=== PATIENT | male | born 1955 | race Caucasian/White ===

== ENCOUNTER 2018-07-15 08:11 | Outpatient (CLI) | payer OTHER, SELFPAY ==
[2018-07-15] VITALS (8 sets, daily range): BP systolic 106–149; BP diastolic 53–80; PULSE 55–63; RESP 16–18; TEMP 36.3; O2SAT 97–100
--- NOTE | 2018-07-15 08:12 | DI.RAD.S_ITS ---
PROCEDURE: PAIN L/S TRANSFORAMINAL INJECT INDICATIONS: SCOLIOSIS FINDINGS: Fluoroscopic spot filming was performed to verify placement of spinal needles at the L1-L2 left-sided foramen region level(s), as labeled on the films. Appropriate location(s) of the needle tip(s) was confirmed by injection of iodinated contrast. IMPRESSION: Successful left L1-L2 foramen region needle tip localization for epidural steroid injection. Dictated by: Felix Hoyos M.D. on 07/15/2018 at 13:01 Approved by: Felix Hoyos M.D. on 07/15/2018 at 13:02
[2018-07-15] MEDS: MIDAZOLAM 5 MG/5 ML VIAL IV (09:12)
[2018-07-15] MEDS: IOPAMIDOL 15 ML VIAL 3 ML INJ (09:18)
[2018-07-15] MEDS: DEXAMETHASONE 10 MG/ML VIAL 20 MG INJ (09:18)
[2018-07-15] MEDS: methylPREDNISolone acetate 80 MG/ML VIAL INJ (09:18)
[2018-07-15] MEDS: BUPIVACAINE 0.25% (PF) VIAL 2 ML INJ (09:18)
--- NOTE | 2018-07-15 09:27 | P.PCN_ITS ---
Procedures Date/Time Date of procedure: 07/15/18 Time of procedure: 09:26 General Procedure description: PROVIDER: Clint Ferro DO Operative Note PREOP DIAGNOSIS 1. FORAMINAL STENOSIS WITH LE SYMPTOMS, POST OP DIAGNOSIS 1. FORAMINAL STENOSIS WITH LE SYMPTOMS, PROCEDURES 1. FLUOROSCOPICALLY GUIDED CONTRAST CONTROLLED TRANSFORAMINAL EPIDURAL STEROID INJECTION - LEFT L1/2 TFESI SURGEON: Clint Ferro, DO INDICATIONS Andry is referred by Dr. Salvador for treatment of Foraminal Stenosis with left LE Symptoms FINDINGS Foraminal Nerve Root Compression secondary to disc disease and facet hypertrophy DESCRIPTION OF PROCEDURE Following denial of allergy and review of potential side effects and complications, including, but not necessarily limited to, infection, allergic reaction, local tissue breakdown, stroke, temporary or permanent nerve injury, paralysis, and possible , the patient indicated that the patient understood and agreed to proceed. An informed consent document was signed by the patient, witnessed by a nurse, and placed in the patient's chart. Additionally, other treatment options including medications, modalities, and physical therapy were reviewed with the patient. After review of previous anaesthesic history and IV conscious sedation the patient was deemed safe to proceed with todays procedure with IV conscious sedation as ASA class II designation. Safety time-out was performed to confirm patient ID, procedure to be performed and site of procedure. IV sedation was accomplished with a combination of 3mg was administered by the RN after DO order , titrated to patient comfort during the course of the procedure while the patient remained responsive to all verbal commands In the prone position following sterile prep and drape of the lumbar region, the left L1/2 posterior neuroforamen was identified fluoroscopically. The skin was anesthetized via a 25-gauge 1.5-inch needle with 1% lidocaine solution. At this point, a 25-gauge 3.5-inch spinal needle was atraumatically introduced and advanced under fluoroscopic guidance through the posterior left L1/2 neuroforamen to approximately the anterior aspect of the canal. Depth was confirmed on lateral view. Following negative aspiration, injection of approximately 1.5 cc of Isovue 200 under live fluoroscopy in the AP view confirmed excellent flow along the nerve root, into the epidural space without vascular or intrathecal uptake observed Radiological data, including multiple fluoroscopic views of the lumbosacral spine, reveal a spinal needle at the left L1/2 posterior neuroforamen. Subsequent views show flow of contrast material flowing superiorly and inferiorly along the nerve root confirming epidural flow. Subsequently, a test dose of 1.5 cc of 1% lidocaine solution was administered and patient was observed for two minutes for signs or symptoms of complications , including abdominal pain, shortness of breath, bilateral upper or lower extremity weakness, nausea and vomiting, prior to steroid injection. At this point, a total of 3 cc or 20 mg of dexamethasone and 80mg Depo medrol was injected without incident. The patient tolerated the procedure well without signs or symptoms of complications prior to transfer to the recovery area continued monitoring without incident. The patient was then transferred to the recovery area where they were observed for an appropriate time after the injection. The patient reported a VAS score of 7 prior to the procedure and a post-procedure VAS of 0. Total Fluoroscopy Time: 24.2 seconds Total Conscious Sedation Time: 24min POST OP INSTRUCTIONS The patient was provided a Pain Log to continue to record their response to the target-specific procedure prior to follow-up visit with their referring physician. Additionally, specific post-injection care instructions and a contact number to our office were provided if concerns arise regarding possible complications associated with the procedure are suspected. Clint Ferro, Complications: none
== END 2018-07-15 09:55 ==
LOC: RAD 08:12
PROVIDERS: PCP Internal Medicine; Visit Provider Physical Medicine & Rehabilitation
DX: M48.061 Spinal stenosis, lumbar region without neurogenic claudication (principal); M54.16 Radiculopathy, lumbar region; M41.56 Other secondary scoliosis, lumbar region; Z98.1 Arthrodesis status
CPT/HCPCS: 64483; 99152; J1040; J1100; J2250

== ENCOUNTER 2018-08-19 11:08 | Outpatient (CLI) | payer OTHER, SELFPAY ==
[2018-08-19] VITALS (9 sets, daily range): BP systolic 115–146; BP diastolic 65–80; PULSE 64–67; RESP 14–18; TEMP 36.3; O2SAT 96–100
--- NOTE | 2018-08-19 11:10 | DI.RAD.S_ITS ---
PROCEDURE: PAIN SI JOINT INJECTION CRYSTAL COMPARISON: None. INDICATIONS: SACROCOCCYGEAL DISORDER FINDINGS: Fluoroscopic spot filming was performed to verify placement of spinal needles at the left and right sacroiliac joints, as labeled on the films. Appropriate location(s) of the needle tip(s) was confirmed by injection of iodinated contrast. Dictated by: Lam Fitzpatrick M.D. on 08/20/2018 at 13:58 Approved by: Lam Fitzpatrick M.D. on 08/20/2018 at 13:59
[2018-08-19] MEDS: MIDAZOLAM 5 MG/5 ML VIAL IV (11:55)
[2018-08-19] MEDS: BUPIVACAINE 0.5% (PF) VIAL 2 ML INJ (12:04)
[2018-08-19] MEDS: IOPAMIDOL 15 ML VIAL 3 ML INJ (12:04)
[2018-08-19] MEDS: BETAMETHASONE 30 MG/5 ML MDV 12 MG INJ (12:05)
--- NOTE | 2018-08-19 12:10 | PC.NURSE ---
assisting pt off proc table and transporting to post proc area in stable condition
--- NOTE | 2018-08-19 12:23 | PC.NURSE ---
Received pt from Tamera James post procedure, pt is alert and awake. able to move from w/c to chair. Resumed monitoring.
--- NOTE | 2018-08-19 12:25 | P.PCN_ITS ---
Procedures Date/Time Date of procedure: 08/19/18 Time of procedure: 12:16 General Procedure description: PREOP Dx: Sacroiliac joint pain/DJD POST OP DX: Sacroiliac Joint Pain/DJD Procedures: Fluoroscopic guided contrast controlled bilateral sacroiliac joint injection Physician: Clint Ferro D.O. Indications: Andry is referred by Dr. Salvador for treatment of bilateral sacroiliac joint pain s/p lumbar fusion Description of procedure Fluoroscopic guided, contrast controlled right sacroiliac joint injection Following denial of allergies and review of potential side effects and complications, including, but not necessarily limited to, infection, allergic reaction, local tissue breakdown, temporary as well as permanent nerve injury, paralysis, stroke and possible , the patient indicated that they understood and agreed to proceed. An informed consent was signed by the patient , witnessed by a nurse, and placed in the patient's chart. Additionally, other treatment options including modalities, medications, and physical therapy were reviewed with the patient. After review of previous anaesthesic history and IV conscious sedation the patient was deemed safe to proceed with todays procedure with IV conscious sedation as ASA class II designation. Safety time-out was performed to confirm patient ID, procedure to be performed and site of procedure. IV sedation was accomplished with a combination of 4mg was administered by the RN after DO order , titrated to patient comfort during the course of the procedure while the patient remained responsive to all verbal commands In the prone position following sterile prep and drape of the pelvic region, the hyper lucency on in the inferior aspect of the sacroiliac joint was identified fluoroscopically the skin was anesthetized be a 25 gauge 1 eventual with approximately 2 cc of 1% lidocaine solution. At this point, a 22 gauge 3 in spinal needle was atraumatically introduced and advanced under fluoroscopic guidance into the inferior aspect of the right sacroiliac joint. Following negative aspiration, approximately 0.3 cc of Isovue-300 was injected confirming intra-articular placement without vascular uptake. Radiographic data, including multiple fluoroscopic views of the pelvis, reveals a spinal needle in the sacroiliac joint hyper lucent zone. Subsequent view show flow contrast tear superiorly and inferiorly within the joint capsule without vascular intrathecal uptake. At this point a total of 1 cc or 0 8 of 0.5% Marcaine was combined with 1 cc of 6 mg of betamethasone was injected without incident. Attention was then refocused to the left SI joint where the procedure was replicated. The procedure tolerated the procedure well without signs or symptoms of complications prior to transfer to the recovery area continued monitoring without incident. The patient was then transferred to the recovery area with a bur observed for an appropriate time after the injection. The patient reverted a vas score of 9 prior to the procedure and postprocedure vas of 2. Total fluoroscopy time: 22.7 sec Total conscious sedation time: 24 min Postop instructions The patient was provided with a pain like to continue to record the patient's response to the target specific procedure prior to the patient's follow-up visit with the referring physician. Additionally, specific post injection care instructions and a contact number to our office were provided if concerns arise regarding the possible complications associated with procedure are suspected. Clint Ferro D.O. Complications: none
== END 2018-08-19 12:40 | disposition home or self-care (01) ==
PROVIDERS: PCP Internal Medicine; Visit Provider Physical Medicine & Rehabilitation
DX: M53.3 Sacrococcygeal disorders, not elsewhere classified (principal); M47.818 Spondylosis without myelopathy or radiculopathy, sacral and sacrococcygeal region; M41.56 Other secondary scoliosis, lumbar region; Z98.1 Arthrodesis status
CPT/HCPCS: 27096; 99152; J0702; J2250

== ENCOUNTER 2019-01-28 13:11 | Outpatient (CLI) | payer OTHER, SELFPAY ==
--- NOTE | 2019-01-28 13:15 | DI.RAD.S_ITS ---
PROCEDURE: PAIN SI JOINT INJECTION INDICATIONS: SACROCOCCYGEAL DISORDER FINDINGS: Fluoroscopic spot filming was performed to verify placement of spinal needle at the left lower third sacroiliac joint level(s), as labeled on the films. Appropriate location(s) of the needle tip(s) was confirmed by injection of iodinated contrast. IMPRESSION: Sacroiliac joint needle tip localization on the left for presumed steroid injection. Dictated by: Felix Hoyos M.D. on 01/28/2019 at 15:06 Approved by: Felix Hoyos M.D. on 01/28/2019 at 15:08
[2019-01-28 13:20] VITALS: BP 108/64; PULSE 65; RESP 16; TEMP 36.2; O2SAT 95
--- NOTE | 2019-01-28 13:47 | P.PCN_ITS ---
Procedures Date/Time Date of procedure: 01/28/19 Time of procedure: 13:45 General Procedure description: PREOP Dx: Sacroiliac joint pain/DJD POST OP DX: Sacroiliac Joint Pain/DJD Procedures: Fluoroscopic guided contrast controlled left sacroiliac joint injection Physician: Clint Ferro D.O. Indications: Andry is referred by Dr. Salvador for treatment of left sacroiliac joint DJD Description of procedure Fluoroscopic guided, contrast controlled left sacroiliac joint injection Following denial of allergies and review of potential side effects and complications, including, but not necessarily limited to, infection, allergic r eaction, local tissue breakdown, temporary as well as permanent nerve injury, paralysis, stroke and possible , the patient indicated that they understood and agreed to proceed. An informed consent was signed by the patient, witnessed by a nurse, and placed in the patient's chart. Additionally, other treatment options including modalities, medications, and physical therapy were reviewed with the patient. After review of previous anaesthesic history and IV conscious sedation the patient was deemed safe to proceed with todays procedure with IV conscious sedation as ASA class II designation. Safety time-out was performed to confirm patient ID, procedure to be performed and site of procedure. IV sedation was accomplished with oral pre-medication and thus IV were not administered by the RN after DO order, titrated to patient comfort during the course of the procedure while the patient remained responsive to all verbal commands. In the prone position following sterile prep and drape of the pelvic region, the hyper lucency on in the inferior aspect of the left sacroiliac joint was identified fluoroscopically the skin was anesthetized be a 25 gauge 1 eventual with approximately 2 cc of 1% lidocaine solution. At this point, a 22 gauge 3 in spinal needle was atraumatically introduced and advanced under fluoroscopic guidance into the inferior aspect of the left sacroiliac joint. Following negative aspiration, approximately 0.3 cc of Isovue-300 was injected confirming intra-articular placement without vascular uptake. Radiographic data, including multiple fluoroscopic views of the pelvis, reveals a spinal needle in the left sacroiliac joint hyper lucent zone. Subsequent view show flow contrast tear superiorly and inferiorly within the joint capsule without vascular intrathecal uptake. At this point a total of 1cc or 0 8 of 0.5% Marcaine was combined with 1cc of 6mg of betamethasone was injected without incident. The patient tolerated the procedure well without signs or symptoms of complications prior to transfer to the recovery area for further monitoring. The patient was then transferred to the recovery area with a bur observed for an appropriate time after the injection. The patient reverted a vas score of 7 prior to the procedure and postprocedure vas of 1. Total fluoroscopy time: 22.7 sec Total conscious sedation time: 24 min Postop instructions The patient was provided with a pain like to continue to record the patient's response to the target specific procedure prior to the patient's follow-up visit with the referring physician. Additionally, specific post injection care instructions and a contact number to our office were provided if concerns arise regarding the possible complications associated with procedure are suspected. Clint Ferro D.O. Complications: none
[2019-01-28 13:59] VITALS: BP 130/70; PULSE 57; RESP 18; O2SAT 98
[2019-01-28 14:04] VITALS: BP 110/90; PULSE 56; RESP 16; O2SAT 97
[2019-01-28] MEDS: BUPIVACAINE 0.5% (PF) VIAL 2 ML INJ (14:07)
[2019-01-28] MEDS: IOPAMIDOL 15 ML VIAL 3 ML INJ (14:07)
[2019-01-28] MEDS: BETAMETHASONE 30 MG/5 ML MDV 12 MG INJ (14:07)
[2019-01-28 14:09] VITALS: BP 130/68; PULSE 56; RESP 16; O2SAT 97
[2019-01-28 14:19] VITALS: BP 122/64; PULSE 58; RESP 16; O2SAT 97
--- NOTE | 2019-01-28 14:21 | PC.NURSE ---
NO SEDATION MEDS GIVEN DURING PROCEDURE. ACCEPTED CARE OF PT IN POST PROC AREA IN STABLE CONDITION
== END 2019-01-28 14:36 | disposition home or self-care (01) ==
PROVIDERS: PCP Internal Medicine; Visit Provider Physical Medicine & Rehabilitation
DX: M53.3 Sacrococcygeal disorders, not elsewhere classified (principal); M47.898 Other spondylosis, sacral and sacrococcygeal region
CPT/HCPCS: 27096; 99152; J0702; J2250; J3010

== ENCOUNTER 2019-04-29 11:26 | Outpatient (CLI) | payer OTHER, SELFPAY ==
[2019-04-29] VITALS (7 sets, daily range): BP systolic 105–140; BP diastolic 55–80; PULSE 57–61; RESP 16; TEMP 36.6; O2SAT 97–100
--- NOTE | 2019-04-29 11:28 | DI.RAD.S_ITS ---
PROCEDURE: PAIN L/S FACET INJ/BLK 1ST CRYSTAL COMPARISON: None. INDICATIONS: SPONDYLOSIS FINDINGS: Needle tip localization is documented at the L1-L2 facet joint regions bilaterally. IMPRESSION: Successful needle tip localization at the bilateral L1-L2 facet joints for presumed steroid injection. Dictated by: Felix Hoyos M.D. on 04/29/2019 at 14:06 Approved by: Felix Hoyos M.D. on 04/29/2019 at 14:07
--- NOTE | 2019-04-29 12:42 | DI.RAD.S_ITS ---
PROCEDURE: PAIN SI JOINT INJECTION CRYSTAL COMPARISON: [facility], XA, PAIN SI JOINT INJECTION CRYSTAL, 08/19/2018, 13:02. INDICATIONS: SACROCOCCYGEAL DISORDER FINDINGS: A total of 6 digital acquisition images show the sequence of injection of steroid into the lower third sacroiliac joint space bilaterally. IMPRESSION: Successful needle tip localization for bilateral sacroiliac joint steroid injection. Dictated by: Felix Hoyos M.D. on 04/29/2019 at 13:51 Approved by: Felix Hoyos M.D. on 04/29/2019 at 13:52
--- NOTE | 2019-04-29 12:43 | P.PCN_ITS ---
Procedures Date/Time Date of procedure: 04/29/19 Time of procedure: 12:39 General Procedure description: PREOP DIAGNOSIS 1. FACET ARTHROPATHY, 2. AXIAL LBP, 3. MULTILEVEL DDD, POST OP DIAGNOSIS 1. FACET ARTHROPATHY, 2. AXIAL LBP, 3. MULTILEVEL DDD, PROCEDURES 1. FLUORSCOPICALLY GUIDED CONTRAST CONTROLLED FACET JOINT INJECTIONS BILATERAL L1/2 SURGEON: Clint Ferro, DO INDICATION Andry is referred by Dr. Salvador is referred for treatment of Axial LBP FINDINGS Multilevel Facet Arthropathy with Clinically significant axial LBP DESCRIPTION OF PROCEDURE Fluoroscopically guided, contrast-controlled bilateral L1/2 facet joint injections. Following review of allergy and review of potential side effects and complications, including, but not necessarily limited to, infection, allergic reaction, local tissue breakdown, stroke, temporary or permanent nerve injury, paralysis, and possible , the patient indicated that the patient understood and agreed to proceed. An informed consent document was signed by the patient, witnessed by a nurse, and placed in the patient's chart. Additionally, other treatment options including medications, modalities, and physical therapy were reviewed with the patient. After review of previous anaesthesic history and IV conscious sedation the patient was deemed safe to proceed with todays procedure with IV conscious sedation as ASA class II designation. Safety time-out was performed to confirm patient ID, procedure to be performed and site of procedure. IV sedation was accomplished with a combination of 3mg of Versed and 50mcg of Fentanyl administered by the RN after DO order, titrated to patient comfort during the course of the procedure while the patient remained responsive to all verbal commands In the prone position, following sterile prep and drape of the lumbar region, the posterior aspect of the L1/2 facet joints were identified fluoroscopically. The skin was anesthetized via a 25-gauge 1.5-inch needle with 1% lidocaine solution into the corresponding facet joints. At this point, a 22-gauge 3.5- inch spinal needle was atraumatically introduced and advanced under fluoroscopic guidance into the corresponding facet joints. Following negative aspiration, injections of approximately 0.2-cc of Isovue 200 confirmed interarticular placement without vascular uptake. The identical procedure was then performed at the L1/2 facet joints on the left. Radiological data, including multiple fluoroscopic views of the lumbosacral spine, reveal a spinal needle at the L1/2 facet joints bilaterally. Subsequent views show flow of contrast material both superiorly and inferiorly within the joint space without vascular or intrathecal uptake. At this point, a total of 0.5 cc including a mixture of 0.25cc Marcaine and 0.25cc betamethasone was injected without complication into each of the corresponding facet joints. The patient tolerated the procedure well without signs or symptoms of complications prior to transfer to the recovery area continued monitoring without incident. The patient was then transferred to the recovery area where they were observed for an appropriate period of time after the injection. The patient reported a VAS score of 7 prior to the procedure and a post-procedure VAS of 0. Total Fluoroscopy Time: 20.3 seconds Total Conscious Sedation Time: 24min POST OP INSTRUCTIONS The patient was provided a Pain Log to continue to record their response to the target-specific procedure prior to follow-up visit with their referring physician. Additionally, specific post-injection care instructions and a contact number to our office were provided if concerns arise regarding possible complications associated with the procedure are suspected. Clint Ferro, Complications: none
[2019-04-29] MEDS: MIDAZOLAM 5 MG/5 ML VIAL IV (12:45)
[2019-04-29] MEDS: fentaNYL 100 MCG/2 ML INJ 50 MCG IV (12:45)
--- NOTE | 2019-04-29 12:45 | P.PCN_ITS ---
Procedures Date/Time Date of procedure: 04/29/19 Time of procedure: 12:43 General Procedure description: PREOP Dx: Sacroiliac joint pain/DJD POST OP DX: Sacroiliac Joint Pain/DJD Procedures: Fluoroscopic guided contrast controlled bilateral sacroiliac joint injection Physician: Clint Ferro D.O. Indications: Andry is referred by Dr. Salvador for treatment of bilateral sacroiliac joint DJD Description of procedure Fluoroscopic guided, contrast controlled bilateral sacroiliac joint injection Following review of allergies and review of potential side effects and complications, including, but not necessarily limited to, infection, allergic reaction, local tissue breakdown, temporary as well as permanent nerve injury, paralysis, stroke and possible , the patient indicated that they understood and agreed to proceed. An informed consent was signed by the patient, witnessed by a nurse, and placed in the patient's chart. Additionally, other treatment options including modalities, medications, and physical therapy were reviewed with the patient. After review of previous anaesthesic history and IV conscious sedation the patient was deemed safe to proceed with todays procedure with IV conscious sedation as ASA class II designation. Safety time-out was performed to confirm patient ID, procedure to be performed and site of procedure. IV sedation was accomplished with a combination of 3mg Versed and 50mcg of Fentanyl were administered by the RN after DO order, titrated to patient comfort during the course of the procedure while the patient remained responsive to all verbal commands In the prone position following sterile prep and drape of the pelvic region, the hyper lucency on in the inferior aspect of the sacroiliac joint was identified fluoroscopically the skin was anesthetized be a 25 gauge 1 eventual with approximately 2 cc of 1% lidocaine solution. At this point, a 22 gauge 3 in spinal needle was atraumatically introduced and advanced under fluoroscopic guidance into the inferior aspect of the right sacroiliac joint. Following negative aspiration, approximately 0.3 cc of Isovue-300 was injected confirming intra-articular placement without vascular uptake. Radiographic data, including multiple fluoroscopic views of the pelvis, reveals a spinal needle in the sacroiliac joint hyper lucent zone. Subsequent view show flow contrast tear superiorly and inferiorly within the joint capsule without vascular intrathecal uptake. At this point a total of 1cc of 0.5% Marcaine was combined with 1 cc of 6mg of betamethasone was injected without incident. Attention was then refocused the left sacroiliac joint where the procedure was replicated. The procedure tolerated the procedure well without signs or symptoms of complications prior to transfer to the recovery area continued monitoring wi thout incident. The patient was then transferred to the recovery area with a bur observed for an appropriate time after the injection. The patient reverted a vas score of 7 prior to the procedure and postprocedure vas of 1. Total fluoroscopy time: 22.7 sec Total conscious sedation time: 24 min Postop instructions The patient was provided with a pain like to continue to record the patient's response to the target specific procedure prior to the patient's follow-up visit with the referring physician. Additionally, specific post injection care instructions and a contact number to our office were provided if concerns arise regarding the possible complications associated with procedure are suspected. Clint Ferro D.O.
[2019-04-29] MEDS: IOPAMIDOL 15 ML VIAL 3 ML INJ (12:53)
[2019-04-29] MEDS: BETAMETHASONE 30 MG/5 ML MDV 12 MG INJ (12:54)
[2019-04-29] MEDS: BUPIVACAINE 0.5% (PF) VIAL 5 ML INJ (12:54)
[2019-04-29] MEDS: LIDOCAINE 1% 20 ML 10 ML INJ (12:54)
--- NOTE | 2019-04-29 13:08 | PC.NURSE ---
Pt tolerated procedure well. Pt able to get off table with standby assist. Transferred pt via wheelchair to pre procedure room for continued monitoring with Tamera HEDRICK.
== END 2019-04-29 13:58 | disposition home or self-care (01) ==
LOC: RAD 11:27
PROVIDERS: PCP Internal Medicine; Visit Provider Physical Medicine & Rehabilitation
DX: M53.3 Sacrococcygeal disorders, not elsewhere classified (principal); M47.9 Spondylosis, unspecified; M41.56 Other secondary scoliosis, lumbar region; Z98.1 Arthrodesis status
CPT/HCPCS: 27096; 64493; 99152; J0702; J2250; J3010

== ENCOUNTER → 2020-02-12 11:40 | Outpatient (CLI) | payer MEDICARE, OTHER, SELFPAY ==
[2020-02-13 07:43] LABS: COVID19 Sendout Not Detected (Not Detect)
== END ==
PROVIDERS: PCP Internal Medicine; Visit Provider Physician Assistant
DX: Z01.818 Encounter for other preprocedural examination (principal)
CPT/HCPCS: 87635

== ENCOUNTER 2020-02-15 09:15 | Outpatient (CLI) | payer MEDICARE, OTHER, SELFPAY ==
[2020-02-15] VITALS (11 sets, daily range): BP systolic 114–157; BP diastolic 52–95; PULSE 57–62; RESP 15–16; TEMP 36.6; O2SAT 96–100
--- NOTE | 2020-02-15 | DI.RAD.S_ITS ---
PROCEDURE: PAIN SI JOINT INJECTION CRYSTAL COMPARISON: Located Within [facility], XA, PAIN SI JOINT INJECTION CRYSTAL, 04/29/2019, 13:04. INDICATIONS: SACROCOCCYGEAL DISORDER FINDINGS: Fluoroscopic spot filming was performed to verify placement of spinal needles at the left and right sacroiliac joints, as labeled on the films. Appropriate location(s) of the needle tip(s) was confirmed by injection of iodinated contrast. Dictated by: Lam Fitzpatrick M.D. on 02/15/2020 at 11:07 Approved by: Lam Fitzpatrick M.D. on 02/15/2020 at 11:12
--- NOTE | 2020-02-15 09:18 | DI.RAD.S_ITS ---
PROCEDURE: PAIN L/S FACET INJ/BLK 1ST CRYSTAL COMPARISON: [facility], , PAIN L/S FACET INJ/BLK 1ST CRYSTAL, 04/29/2019, 12:56. INDICATIONS: SPONDYLOSIS FINDINGS: Fluoroscopic spot filming was performed to verify placement of spinal needles at the L1-L2 level(s), as labeled on the films. Appropriate location(s) of the needle tip(s) was confirmed by injection of iodinated contrast. Dictated by: Lam Fitzpatrick M.D. on 02/15/2020 at 11:07 Approved by: Lam Fitzpatrick M.D. on 02/15/2020 at 11:07
[2020-02-15] MEDS: MIDAZOLAM 5 MG/5 ML VIAL IV (10:05)
[2020-02-15] MEDS: fentaNYL 100 MCG/2 ML INJ 50 MCG IV (10:05)
[2020-02-15] MEDS: BUPIVACAINE 0.5% (PF) VIAL 5 ML INJ (10:11)
[2020-02-15] MEDS: IOPAMIDOL 15 ML VIAL 3 ML INJ (10:11)
[2020-02-15] MEDS: LIDOCAINE 1% 20 ML 10 ML INJ (10:12)
[2020-02-15] MEDS: BETAMETHASONE 30 MG/5 ML MDV 12 MG INJ (10:18)
--- NOTE | 2020-02-15 10:26 | PC.NURSE ---
ASSISTING PT OFF TABLE AND TRANSPORTING TO POST PROC AREA IN STABLE CONDITION. PASSING RN CARE OF PT OFF TO RYLEY ARCHIBALD.
--- NOTE | 2020-02-15 10:32 | P.PCN_ITS ---
Procedures Date/Time Date of procedure: 02/15/20 Time of procedure: 10:33 General Procedure description: PREOP Dx: Sacroiliac joint pain/DJD POST OP DX: Sacroiliac Joint Pain/DJD Procedures: Fluoroscopic guided contrast controlled bilateral sacroiliac joint injection Physician: Clint Ferro D.O. Indications: Andry is referred by Dr. Salvador for treatment of bilateral sacroiliac joint DJD Description of procedure Fluoroscopic guided, contrast controlled bilateral sacroiliac joint injection Following review of allergies and review of potential side effects and complications, including, but not necessarily limited to, infection, allergic reaction, local tissue breakdown, temporary as well as permanent nerve injury, paralysis, stroke and possible , the patient indicated that they understood and agreed to proceed. An informed consent was signed by the patient, witnessed by a nurse, and placed in the patient's chart. Additionally, other treatment options including modalities, medications, and physical therapy were reviewed with the patient. After review of previous anaesthesic history and IV conscious sedation the patient was deemed safe to proceed with todays procedure with IV conscious sedation as ASA class II designation. Safety time-out was performed to confirm patient ID, procedure to be performed and site of procedure. IV sedation was accomplished with a combination of 4mg Versed and 50mcg of Fentanyl were administered by the RN after DO order, titrated to patient comfort during the course of the procedure while the patient remained responsive to all verbal commands In the prone position following sterile prep and drape of the pelvic region, the hyper lucency on in the inferior aspect of the sacroiliac joint was identified fluoroscopically the skin was anesthetized be a 25 gauge 1 eventual with approximately 2 cc of 1% lidocaine solution. At this point, a 22 gauge 3 in spinal needle was atraumatically introduced and advanced under fluoroscopic guidance into the inferior aspect of the right sacroiliac joint. Following negative aspiration, approximately 0.3 cc of Isovue-300 was injected confirming intra-articular placement without vascular uptake. Radiographic data, including multiple fluoroscopic views of the pelvis, reveals a spinal needle in the sacroiliac joint hyper lucent zone. Subsequent view show flow contrast tear superiorly and inferiorly within the joint capsule without vascular intrathecal uptake. At this point a total of 1cc of 0.5% Marcaine was combined with cc of 6 mg of betamethasone was injected without incident. Attention was then refocused the left sacroiliac joint where the procedure was replicated. The procedure tolerated the procedure well without signs or symptoms of complications prior to transfer to the recovery area continued monitoring wi thout incident. The patient was then transferred to the recovery area with a bur observed for an appropriate time after the injection. The patient reverted a vas score of 9 prior to the procedure and postprocedure vas of 1. Total fluoroscopy time: 13 sec Total conscious sedation time: 24 min Postop instructions The patient was provided with a pain like to continue to record the patient's response to the target specific procedure prior to the patient's follow-up visit with the referring physician. Additionally, specific post injection care instructions and a contact number to our office were provided if concerns arise regarding the possible complications associated with procedure are suspected. Clint Ferro D.O.
--- NOTE | 2020-02-15 10:34 | PM.PROC.1 ---
Procedures Date/Time Date of procedure: 02/15/20 Time of procedure: 10:34 General Procedure description: POST OP DIAGNOSIS 1. FACET ARTHROPATHY PROCEDURES 1. BILATERAL L1, L2 DIAGNOSTIC MB BLOCKS PHYSICIAN: DO VICENTE Stewart Andry is referred by Dr. Salvador for treatment of Bilateral Axial LBP. DESCRIPTION OF PROCEDURE Fluoroscopically guided, contrast-controlled bilateral L1, L2 medial branch blocks with 0.5cc of 0.5% Marcaine. Following review of allergy and review of potential side effects and complications, including, but not necessarily limited to, infection, allergic reaction, local tissue breakdown, nerve injury, paralysis, stroke and possible , the patient indicated that the patient understood and agreed to proceed. An informed consent document was signed by the patient, witnessed by a nurse, and placed in the patient's chart. After review of previous anaesthesic history and IV conscious sedation the patient was deemed safe to proceed with todays procedure with IV conscious sedation as ASA class II designation. Safety time-out was performed to confirm patient ID, procedure to be performed and site of procedure. IV sedation was accomplished with a combination of 4mg of Versed and 50mcg of Fentantyl was administered by the RN after DO order, titrated to patient comfort during the course of the procedure while the patient remained responsive to all verbal commands In the prone position, following sterile prep and drape of the lumbar region, the right L1, L2 anatomical location of the medial branch of the dorsal ramus was identified fluoroscopically. Subsequently an anesthetic skin wheal using 1% lidocaine solution was initiated at each of the anatomical spots. Subsequently then a 22-gauge 3.5-inch spinal needle was atraumatically introduced and advanced under fluoroscopic guidance at each of the corresponding sites at the right L1, L2 MB. After negative aspiration, 0.2cc of Isovue 200 was injected, confirming placement without vascular or intrathecal uptake. Subsequently then 0.5cc of 0.5% Marcaine solution was injected at each of the corresponding sites at the right L1, L2 medial branch locations. The identical procedure was replicated on the left. The patient tolerated the procedure well without signs or symptoms of complications. The patient tolerated the procedure well without signs or symptoms of complications prior to transfer to the recovery area continued monitoring without incident. Post-procedure, the patient was monitored initiating provocative activities to measure the amount of relief from block of the facetogenic pain. The patient reported a VAS of 9 prior to the procedure and a post-procedure VAS of 1. It has been a pleasure to assist in the diagnostic and therapeutic care of your patient. Total Fluoroscopy Time: 13seconds Total Conscious Sedation Time: 24min POST OP INSTRUCTIONS The patient was provided with a Pain Log to complete over the next several hours and subsequent days prior to the patient's follow up with the ordering physician. 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 The patient is aware, was provided, once again, with a Pain Log and will follow up with the referring physician for review and clinical correlation Clint Ferro DO Complications: none
== END 2020-02-15 11:10 | disposition home or self-care (01) ==
LOC: RAD 09:18
PROVIDERS: PCP Internal Medicine; Referring Provider Physical Medicine & Rehabilitation; Visit Provider Physical Medicine & Rehabilitation
DX: M53.3 Sacrococcygeal disorders, not elsewhere classified (principal); M47.818 Spondylosis without myelopathy or radiculopathy, sacral and sacrococcygeal region; M47.816 Spondylosis without myelopathy or radiculopathy, lumbar region; M54.5 Low back pain
CPT/HCPCS: 27096; 64493; 99152; 99153; J0702; J2250; J3010

== ENCOUNTER → 2021-03-26 09:52 | Outpatient (CLI) | payer MEDICARE, OTHER, SELFPAY ==
[2021-03-26 16:25] LABS: COVID19 -Nasal RAPID Negative (Negative)
== END ==
PROVIDERS: Student in an Organized Health Care Education/Training Program; PCP Internal Medicine; Visit Provider Physical Medicine & Rehabilitation
DX: Z20.822 Contact with and (suspected) exposure to COVID-19 (principal); Z01.812 Encounter for preprocedural laboratory examination
CPT/HCPCS: 87635; C9803

== ENCOUNTER 2021-03-27 10:38 | Outpatient (CLI) | payer MEDICARE, OTHER, SELFPAY ==
[2021-03-27] VITALS (8 sets, daily range): BP systolic 116–158; BP diastolic 58–74; PULSE 49–56; RESP 14–19; O2SAT 84–100
--- NOTE | 2021-03-27 10:39 | DI.RAD.S_ITS ---
PROCEDURE: PAIN SI JOINT INJECTION CRYSTAL COMPARISON: [facility], XA, PAIN SI JOINT INJECTION CRYSTAL, 02/15/2020, 9:17. INDICATIONS: SACROILIAC DISORDER FINDINGS: These fluoroscopic images were performed for intraoperative localization. On these images, both sacroiliac joints are injected. Please correlate with intraoperative findings. IMPRESSION: Intraprocedural examination within normal limits. Dictated by: Brian Henley M.D. on 03/27/2021 at 12:30 Approved by: Brian Henley M.D. on 03/27/2021 at 12:31
--- NOTE | 2021-03-27 12:55 | PM.PROC.IR.1 ---
Date/Time/Diagnoses Date of procedure: 03/27/21 Time of procedure: 12:56 Pre-procedure diagnosis: Sacroiliac joint pain/DJD Post-procedure diagnosis: same Procedure Notes Procedure: Fluoroscopic guided contrast controlled bilateral sacroiliac joint injection Indications: Andry is referred by Dr. Salvador for treatment of bilateral sacroiliac joint DJD Physician: Clint Ferro Total Fluoroscopy time (seconds): 15 Total sedation minutes: 12 Complications: none Procedure in detail & Post-procedure care: Description of procedure Fluoroscopic guided, contrast controlled bilateral sacroiliac joint injection Following review of allergies and review of potential side effects and complications, including, but not necessarily limited to, infection, allergic reaction, local tissue breakdown, temporary as well as permanent nerve injury, paralysis, stroke and possible , the patient indicated that they understood and agreed to proceed. An informed consent was signed by the patient, witnessed by a nurse, and placed in the patient's chart. Additionally, other treatment options including modalities, medications, and physical therapy were reviewed with the patient. After review of previous anaesthesic history and IV conscious sedation the patient was deemed safe to proceed with today?s procedure with IV conscious sedation as ASA class II designation. Safety time-out was performed to confirm patient ID, procedure to be performed and site of procedure. IV sedation was accomplished with a combination of 4mg Versed and 50mcg of Fentanyl were administered by the RN after DO order, titrated to patient comfort during the course of the procedure while the patient remained responsive to all verbal commands In the prone position following sterile prep and drape of the pelvic region, the hyper lucency on in the inferior aspect of the sacroiliac joint was identified fluoroscopically the skin was anesthetized be a 25 gauge 1.5 inch needle with approximately 2cc of 1% lidocaine solution. At this point, a 22 gauge 3 in spinal needle was atraumatically introduced and advanced under fluoroscopic guidance into the inferior aspect of the right sacroiliac joint. Following negative aspiration, approximately 0.3cc of Isovue-300 was injected confirming intra-articular placement without vascular uptake. Radiographic data, including multiple fluoroscopic views of the pelvis, reveals a spinal needle in the sacroiliac joint hyper lucent zone. Subsequent view show flow contrast tear superiorly and inferiorly within the joint capsule without vascular intrathecal uptake. At this point a total of 1cc of 0.5% Marcaine was combined with 1cc of 6mg of betamethasone was injected without incident. Attention was then refocused the left sacroiliac joint where the procedure was replicated. The procedure tolerated the procedure well without signs or symptoms of complications prior to transfer to the recovery area continued monitoring without incident. The patient was then transferred to the recovery area with a bur observed for an appropriate time after the injection. The patient reverted a vas score of 7 prior to the procedure and post-procedure vas of 1. Postop instructions The patient was provided with a pain like to continue to record the patient's response to the target specific procedure prior to the patient's follow-up visit with the referring physician. Additionally, specific post injection care instructions and a contact number to our office were provided if concerns arise regarding the possible complications associated with procedure are suspected.
[2021-03-27] MEDS: fentaNYL 100 MCG/2 ML INJ 50 MCG IV (14:13)
[2021-03-27] MEDS: MIDAZOLAM 5 MG/5 ML VIAL IV (14:13)
== END 2021-03-27 13:12 | disposition home or self-care (01) ==
LOC: RAD 10:39
PROVIDERS: PCP Internal Medicine; Referring Provider Physical Medicine & Rehabilitation; Visit Provider Physical Medicine & Rehabilitation
DX: M53.3 Sacrococcygeal disorders, not elsewhere classified (principal); M46.1 Sacroiliitis, not elsewhere classified
CPT/HCPCS: 27096; 99152; J0702; J2250; J3010

== ENCOUNTER 2021-05-03 07:29 | Outpatient (CLI) | payer MEDICARE, OTHER, SELFPAY ==
[2021-05-03] VITALS (11 sets, daily range): BP systolic 107–135; BP diastolic 56–65; PULSE 50–60; RESP 12–20; TEMP 36.1; O2SAT 96–100
--- NOTE | 2021-05-03 07:31 | DI.RAD.S_ITS ---
PROCEDURE: PAIN L/S MED/LAT N RFA BILAT INDICATIONS: SPONDYLOSIS COMPARISON: [facility], XA, PAIN SI JOINT INJECTION CRYSTAL, 03/27/2021, 12:39. FINDINGS: Fluoroscopic spot filming was performed to verify placement of spinal needles at the L1-L2 levels on both sides, as labeled on the films. IMPRESSION: Intraprocedural examination within normal limits. Dictated by: Brian Henley M.D. on 05/03/2021 at 8:48 Approved by: Brian Henley M.D. on 05/03/2021 at 8:49
[2021-05-03] MEDS: fentaNYL 100 MCG/2 ML INJ 50 MCG IV (08:20)
[2021-05-03] MEDS: BUPIVACAINE 0.5% (PF) VIAL 5 ML INJ (08:25)
[2021-05-03] MEDS: LIDOCAINE 1% 20 ML 10 ML INJ (08:25)
[2021-05-03] MEDS: MIDAZOLAM 5 MG/5 ML VIAL IV (08:30)
--- NOTE | 2021-05-03 08:55 | P.PCN_ITS ---
Date/Time/Diagnoses Date of procedure: 05/03/21 Time of procedure: 08:55 Pre-procedure diagnosis: 1. RECALCITRANT FACET ARTHROPATHY Post-procedure diagnosis: same Procedure Notes Procedure: 1. BILATERAL L1 and L2 MEDIAL BRANCH RADIOFREQUENCY NEUROTOMY Indications: Andry is referred by Dr. Salvador for treatment of facet arthropathy. Physician: Clint Ferro Total Fluoroscopy time (seconds): 16 Total sedation minutes: 30 Complications: none Procedure in detail & Post-procedure care: DESCRIPTION OF PROCEDURE Bilateral L1 and L2 medial branch radiofrequency neurotomy The patient is well known to this clinic having undergone previous facet injections with good but temporary relief. The patient has experienced appropriate, concordant relief with previous facet and median branch blocks but the patient's pain has been recalcitrant to further conservative measures. Therefore, based upon the patient's relief and persistent symptoms, the patient is considered an appropriate candidate for facet rhizotomy. All of the patient's questions regarding the risks versus benefits of the procedure, including, but not limited to, bleeding, infection, temporary as well as lasting nerve injury, paralysis, stroke, and , as well treatment alternatives were answered to satisfaction. After obtaining informed consent, denial of pertinent drug allergies, as well as being made aware of the potential risks of bleeding, infection, spinal cord trauma, paralysis, temporary and permanent nerve damage, seizure, stroke, and possible , the patient was brought to the fluoroscopy suite and positioned prone on the fluoroscopy table. The lumbar region was prepped with Betadine and covered with a fenestrated drape in the usual sterile fashion. Appropriate monitors applied including pulse oximeter, pulse, and blood pressure for regular monitoring throughout the procedure. After review of previous anaesthesic history and IV conscious sedation the patient was deemed safe to proceed with today's procedure with IV conscious sedation as ASA class II designation. Safety time-out was performed to confirm patient ID, procedure to be performed and site of procedure. IV sedation was accomplished with a combination of 4mg of Versed and 50mcg of Fentanyl administered by the RN after DO order, titrated to patient comfort during the course of the procedure while the patient remained responsive to all verbal commands. After local infiltration using 1% lidocaine, under fluoroscopic guidance, a 10- cm RF insulated needle with a 10-mm active tip was positioned parallel to the junction of the right the superior articulating process where the L1 medial branch resides. Needle placement was confirmed with motor stimulation of .5v on the right which produced local stimulation without radicular component. The stimulation was then increased to 2v with, once again, only local multifidus stimulation without radicular component. The needle was then removed and the identical procedure was performed along the length of the right L2 medial branch with motor stimulation at .7v on the right. The medial branches were then anesthetised with 0.5% marcaine. This was then followed by two discreet lesions performed at 80 degrees Celsius for 90 seconds each. The identical procedures were repeated on the left. The patient tolerated the procedure well without signs or symptoms of complications prior to transfer to the recovery area continued monitoring without incident. The patient was then transferred to the recovery area where they were observed for an appropriate period of time after the injection. The patient reported a VAS score of 9 prior to the procedure and a post-procedure VAS of 0. POST OP INSTRUCTIONS The patient was provided a Pain Log to continue to record the patient's response to the target-specific procedure prior to the patient's follow-up visit with the referring physician. Additionally, specific post-injection care instructions and a contact number to our office were provided if concerns arise regarding possible complications associated with the procedure are suspected.
--- NOTE | 2021-05-03 09:20 | PC.NURSE ---
Patient is A&O able to make needs known. He is drowsy able to keep his eyes open and have a conversation. Steady on feet able to take steps, denies feeling dizzy or light headed.
== END 2021-05-03 09:21 | disposition home or self-care (01) ==
LOC: RAD 07:31
PROVIDERS: PCP Internal Medicine; Referring Provider Physical Medicine & Rehabilitation; Visit Provider Physical Medicine & Rehabilitation
DX: M47.816 Spondylosis without myelopathy or radiculopathy, lumbar region (principal)
CPT/HCPCS: 64635; 99152; 99153; J2250; J3010

== ENCOUNTER → 2022-02-11 14:05 | Outpatient (CLI) | payer MEDICARE, OTHER, SELFPAY ==
[2022-02-11 14:32] LABS: COVID19 -Nasal RAPID Negative (Negative)
== END ==
PROVIDERS: PCP Internal Medicine; Visit Provider Physical Medicine & Rehabilitation
DX: M47.816 Spondylosis without myelopathy or radiculopathy, lumbar region (principal); M53.3 Sacrococcygeal disorders, not elsewhere classified; M41.86 Other forms of scoliosis, lumbar region; F06.31 Mood disorder due to known physiological condition with depressive features; Z20.822 Contact with and (suspected) exposure to COVID-19; Z98.1 Arthrodesis status
CPT/HCPCS: 87635; 99214; C9803

== ENCOUNTER 2022-02-14 08:33 | Outpatient (CLI) | payer MEDICARE, OTHER, SELFPAY ==
[2022-02-14] VITALS (7 sets, daily range): BP systolic 130–160; BP diastolic 55–72; PULSE 50–78; RESP 15–19; TEMP 36.8; O2SAT 96–100
--- NOTE | 2022-02-14 08:37 | DI.RAD.S_ITS ---
PROCEDURE: PAIN SI JOINT INJECTION CRYSTAL COMPARISON: [facility], , PAIN SI JOINT INJECTION CRYSTAL, 03/27/2021, 12:39. INDICATIONS: SACROILIAC DISORDER FINDINGS: Fluoroscopic spot filming was performed to verify placement of spinal needles both sacroiliac joints. Appropriate location of the needle tips was confirmed by injection of iodinated contrast. IMPRESSION: Intraprocedural examination demonstrating appropriate positions of the needles. Dictated by: Brian Henley M.D. on 02/14/2022 at 9:46 Approved by: Brian Henley M.D. on 02/14/2022 at 9:47
[2022-02-14] MEDS: IOPAMIDOL 15 ML VIAL 3 ML INJ (09:33)
[2022-02-14] MEDS: BUPIVACAINE 0.5% (PF) VIAL 5 ML INJ (09:33)
[2022-02-14] MEDS: LIDOCAINE 1% 20 ML (09:34)
[2022-02-14] MEDS: BETAMETHASONE 30 MG/5 ML MDV 12 MG INJ (09:34)
--- NOTE | 2022-02-14 09:49 | PM.PROC.IR.1 ---
Date/Time/Diagnoses Date of procedure: 02/14/22 Time of procedure: 09:49 Pre-procedure diagnosis: Sacroiliac joint pain/DJD Post-procedure diagnosis: same Procedure Notes Procedure: Fluoroscopic guided contrast controlled bilateral sacroiliac joint injection Indications: Andry is referred by Dr. Salvador for treatment of right sacroiliac joint DJD Physician: Clint Ferro Total Fluoroscopy time (seconds): 26 Total sedation minutes: 0 Complications: none Procedure in detail & Post-procedure care: Description of procedure Fluoroscopic guided, contrast controlled bilateral sacroiliac joint injection Following review of allergies and review of potential side effects and complications, including, but not necessarily limited to, infection, allergic reaction, local tissue breakdown, temporary as well as permanent nerve injury, paralysis, stroke and possible , the patient indicated that they understood and agreed to proceed. An informed consent was signed by the patient, witnessed by a nurse, and placed in the patient's chart. Additionally, other treatment options including modalities, medications, and physical therapy were reviewed with the patient. After review of previous anaesthesic history and IV conscious sedation the patient was deemed safe to proceed with today?s procedure with IV conscious sedation as ASA class II designation. Safety time-out was performed to confirm patient ID, procedure to be performed and site of procedure. IV sedation was deemed unnecessary and thus not administered by the RN after DO order, titrated to patient comfort during the course of the procedure while the patient remained responsive to all verbal commands In the prone position following sterile prep and drape of the pelvic region, the hyper lucency on in the inferior aspect of the sacroiliac joint was identified fluoroscopically the skin was anesthetized be a 25 gauge 1.5 inch needle with approximately 2cc of 1% lidocaine solution. At this point, a 22 gauge 3 in spinal needle was atraumatically introduced and advanced under fluoroscopic guidance into the inferior aspect of the right sacroiliac joint. Following negative aspiration, approximately 0.3cc of Isovue-300 was injected confirming intra-articular placement without vascular uptake. Radiographic data, including multiple fluoroscopic views of the pelvis, reveals a spinal needle in the sacroiliac joint hyper lucent zone. Subsequent view show flow contrast tear superiorly and inferiorly within the joint capsule without vascular intrathecal uptake. At this point a total of 1cc of 0.5% Marcaine was combined with 1cc of 6mg of betamethasone was injected without incident. Attention was then refocused the left sacroiliac joint where the procedure was replicated. The procedure tolerated the procedure well without signs or symptoms of complications prior to transfer to the recovery area continued monitoring without incident. The patient was then transferred to the recovery area with a bur observed for an appropriate time after the injection. The patient reverted a vas score of 7 prior to the procedure and post-procedure vas of 1. Postop instructions The patient was provided with a pain like to continue to record the patient's response to the target specific procedure prior to the patient's follow-up visit with the referring physician. Additionally, specific post injection care instructions and a contact number to our office were provided if concerns arise regarding the possible complications associated with procedure are suspected.
== END 2022-02-14 10:05 | disposition home or self-care (01) ==
LOC: RAD 08:35
PROVIDERS: PCP Internal Medicine; Referring Provider Physical Medicine & Rehabilitation; Visit Provider Physical Medicine & Rehabilitation
DX: M53.3 Sacrococcygeal disorders, not elsewhere classified (principal); M46.1 Sacroiliitis, not elsewhere classified
CPT/HCPCS: 27096; J0702; J2250

== ENCOUNTER → 2022-02-25 15:12 | Outpatient (CLI) | payer MEDICARE, OTHER, SELFPAY ==
--- NOTE | 2022-02-25 | DI.MRI.S_ITS ---
PROCEDURE: MR LUMBAR SPINE WO CON INDICATIONS: LOW BACK PAIN S/P LUMBAR FUSION TECHNIQUE: Noncontrast sagittal T1 spin echo and T2 fast echo, sagittal STIR, and T2 fast spin echo through the lumbar spine. In cases with scoliosis, additional coronal T2 fast spin echo may be performed. COMPARISON: [facility], CR, XR LUMBAR SPINE 2-3V, 02/25/2022, 15:02. [facility], RG, XR L-SPINE 2-3V, 03/06/2021, 12:35. [facility], [place], CT L SPINE WITHOUT CONTRAST, 11/19/2016, 10:08. [facility], [place], MRI L-SPINE W/O CONTRAST, 09/23/2016, 17:09. FINDINGS: Image quality: Excellent. Alignment and Curvature: There is normal bony alignment. Bones: Postsurgical changes compatible with L2-S1 posterior fusion. Status post L4-L5 discectomy with interbody fusion. The left L2 transpedicular screw traverses the L1-L2 disc with tip positioned in the inferior margin of the L1 vertebral body. Modic type 1 reactive endplate changes noted adjacent to the T12-L1 and L1-L2 discs. No acute vertebral body compression fractures. Spinal Cord: Conus medullaris terminates at the T12-L1 disc level. Visualized cord demonstrates normal signal and size. Paraspinous Soft Tissues: No paravertebral masses. T12-L1: Loss of disc signal and height. Mild to moderate diffuse disc bulge. Mild bilateral facet hypertrophy. Moderate narrowing of the central canal. Moderate right and mild left neural foraminal narrowing. No neural compression. L1-L2: Loss of disc signal and height. Moderate, diffuse disc bulge. Mild bilateral facet hypertrophy. Severe narrowing of the central canal with compression of the nerve roots of the cauda equina. Moderate bilateral neural foraminal narrowing. L2-L3: Loss of disc signal and height. Mild, diffuse disc bulge. Trsz-ls-[id number] bilateral facet hypertrophy. Mild narrowing of the central canal. Moderate bilateral neural foraminal narrowing. No neural compression. L3-L4: Loss of disc signal and height. Mild, diffuse disc bulge. Mild bilateral facet hypertrophy. Mild narrowing of the central canal. Moderate bilateral neural foraminal narrowing. No neural compression. L4-L5: Status post interbody fusion. Small posterior endplate osteophytes. Mild bilateral facet hypertrophy. No central stenosis. Severe right and moderate left neural foraminal narrowing with compression of the exiting right L4 nerve root. L5-S1: Loss of disc signal and height. Moderate, diffuse disc bulge. Mild bilateral facet hypertrophy. No central stenosis. Severe bilateral neural foraminal narrowing with compression of the exiting L5 nerve roots. IMPRESSION: 1. Status post L2-S1 fusion and L4-L5 interbody fusion. Left L2 transpedicular screw follows a superior course projecting across the L1-L2 intervertebral disc space with tip projecting into the inferior margin of the L1 vertebral body. 2. Multilevel degenerative disc disease. 3. Multilevel facet arthropathy. 4. Severe L1-L2 central canal narrowing with compression of the nerve roots of the cauda equina. 4. Severe right L4-L5 neural foraminal narrowing with compression of the exiting right L4 nerve root. Severe bilateral L5-S1 neural foraminal narrowing with compression of the exiting bilateral L5 nerve roots. Dictated by: Elysia Us MD, PhD on 02/25/2022 at 16:39 Approved by: Elysia Us MD, PhD on 02/25/2022 at 16:46
--- NOTE | 2022-02-25 15:14 | DI.RAD.S_ITS ---
PROCEDURE: XR LUMBAR SPINE 2-3V INDICATIONS: Low back pain status post lumbar fusion TECHNIQUE: 3 views of the lumbar spine were acquired. COMPARISON: None. FINDINGS: Bones: 5 [id number] vertebrae are present. L2-S1 posterior fusion. Orthopedic hardware is intact. Orthopedic hardware is in expected position There is normal bony alignment. Convex right scoliosis of the thoracolumbar spine. No vertebral body compression fractures. No suspicious bony lesions. Severe L1-L2, L2-L3 and L5-S1 degenerative disc changes. Moderate facet arthropathy noted throughout the lumbar spine. Soft tissues: Overlying bowel gas pattern is normal. No suspicious soft tissue calcifications. IMPRESSION: 1. Multilevel degenerative disc disease. 2. Multilevel facet arthropathy. 3. No fracture. No acute osseous lesion. If symptoms and/or clinical suspicion for pathology persists, evaluation with MRI should be considered for further assessment. 4. L2-L5 posterior fusion. Dictated by: Elysia Us MD, PhD on 02/25/2022 at 16:37 Approved by: Elysia Us MD, PhD on 02/25/2022 at 16:39
== END ==
PROVIDERS: PCP Internal Medicine; Referring Provider Physical Medicine & Rehabilitation; Visit Provider Physical Medicine & Rehabilitation
DX: M51.36 Other intervertebral disc degeneration, lumbar region (principal); M47.816 Spondylosis without myelopathy or radiculopathy, lumbar region; M47.817 Spondylosis without myelopathy or radiculopathy, lumbosacral region; M48.061 Spinal stenosis, lumbar region without neurogenic claudication; M48.07 Spinal stenosis, lumbosacral region; M41.85 Other forms of scoliosis, thoracolumbar region; Z98.1 Arthrodesis status
CPT/HCPCS: 72100; 72148

== ENCOUNTER 2022-08-27 10:27 | Outpatient (CLI) | payer MEDICARE, OTHER, SELFPAY ==
[2022-08-27] VITALS (9 sets, daily range): BP systolic 126–147; BP diastolic 64–91; PULSE 75–97; RESP 12–20; TEMP 36.3; O2SAT 95–100
--- NOTE | 2022-08-27 10:28 | DI.RAD.S_ITS ---
PROCEDURE: PAIN SI JOINT INJECTION CRYSTAL COMPARISON: [facility], MR, MR LUMBAR SPINE WO CON, 02/25/2022, 15:45. [facility], CR, XR LUMBAR SPINE 2-3V, 02/25/2022, 15:02. INDICATIONS: SACROILIAC DISORDER FINDINGS: 6 intraoperative fluoroscopy images demonstrate needle placement at sacroiliac joints bilaterally. Degenerative and postsurgical changes are noted in lumbar spine. IMPRESSION: Fluoroscopy for pain management. Dictated by: Dionte Quintana M.D. on 08/27/2022 at 12:14 Approved by: Dionte Quintana M.D. on 08/27/2022 at 12:15
[2022-08-27] MEDS: MIDAZOLAM 2 MG/2 ML VIAL IV (11:20)
[2022-08-27] MEDS: BUPIVACAINE 0.5% (PF) VIAL 5 ML INJ (11:21)
[2022-08-27] MEDS: IOPAMIDOL 15 ML VIAL 3 ML INJ (11:21)
[2022-08-27] MEDS: BETAMETHASONE 30 MG/5 ML MDV 12 MG INJ (11:21)
[2022-08-27] MEDS: LIDOCAINE 1% (PF) 5 ML INJ (11:22)
--- NOTE | 2022-08-27 11:35 | PM.PROC.IR.1 ---
Date/Time/Diagnoses Date of procedure: 08/27/22 Time of procedure: 11:36 Pre-procedure diagnosis: Sacroiliac joint pain/DJD Post-procedure diagnosis: same Procedure Notes Procedure: Fluoroscopic guided contrast controlled bilateral sacroiliac joint injection Indications: Andry is referred by Dr. Salvador for treatment of bilateral sacroiliac joint DJD Physician: Clint Ferro Total Fluoroscopy time (seconds): 22 Total sedation minutes: 25 Complications: none Procedure in detail & Post-procedure care: Description of procedure Fluoroscopic guided, contrast controlled bilateral sacroiliac joint injection Following review of allergies and review of potential side effects and complications, including, but not necessarily limited to, infection, allergic reaction, local tissue breakdown, temporary as well as permanent nerve injury, paralysis, stroke and possible , the patient indicated that they understood and agreed to proceed. An informed consent was signed by the patient, witnessed by a nurse, and placed in the patient's chart. Additionally, other treatment options including modalities, medications, and physical therapy were reviewed with the patient. After review of previous anaesthesic history and IV conscious sedation the patient was deemed safe to proceed with today?s procedure with IV conscious sedation as ASA class II designation. Safety time-out was performed to confirm patient ID, procedure to be performed and site of procedure. IV sedation was accomplished with a combination of 2mg Versed was administered by the RN after DO order, titrated to patient comfort during the course of the procedure while the patient remained responsive to all verbal commands In the prone position following sterile prep and drape of the pelvic region, the hyper lucency on in the inferior aspect of the sacroiliac joint was identified fluoroscopically the skin was anesthetized be a 25 gauge 1.5 inch needle with approximately 2cc of 1% lidocaine solution. At this point, a 22 gauge 3 in spinal needle was atraumatically introduced and advanced under fluoroscopic guidance into the inferior aspect of the right sacroiliac joint. Following negative aspiration, approximately 0.3cc of Isovue-300 was injected confirming intra-articular placement without vascular uptake. Radiographic data, including multiple fluoroscopic views of the pelvis, reveals a spinal needle in the sacroiliac joint hyper lucent zone. Subsequent view show flow contrast tear superiorly and inferiorly within the joint capsule without vascular intrathecal uptake. At this point a total of 1cc of 0.5% Marcaine was combined with 1cc of 6mg of betamethasone was injected without incident. Attention was then refocused the left sacroiliac joint where the procedure was replicated. The procedure tolerated the procedure well without signs or symptoms of complications prior to transfer to the recovery area continued monitoring without incident. The patient was then transferred to the recovery area with a bur observed for an appropriate time after the injection. The patient reverted a vas score of 7 prior to the procedure and post-procedure vas of 1. Postop instructions The patient was provided with a pain like to continue to record the patient's response to the target specific procedure prior to the patient's follow-up visit with the referring physician. Additionally, specific post injection care instructions and a contact number to our office were provided if concerns arise regarding the possible complications associated with procedure are suspected.
== END 2022-08-27 11:52 | disposition home or self-care (01) ==
LOC: RAD 10:28
PROVIDERS: PCP Internal Medicine; Referring Provider Physical Medicine & Rehabilitation; Visit Provider Physical Medicine & Rehabilitation
DX: M53.3 Sacrococcygeal disorders, not elsewhere classified (principal); M46.1 Sacroiliitis, not elsewhere classified
CPT/HCPCS: 27096; 99152; 99153; J0702; J2250

== ENCOUNTER 2023-02-20 07:34 | Outpatient (CLI) | payer MEDICARE, OTHER, SELFPAY ==
[2023-02-20] VITALS (9 sets, daily range): BP systolic 119–151; BP diastolic 59–69; PULSE 59–63; RESP 13–22; TEMP 36.9; O2SAT 98–100
--- NOTE | 2023-02-20 07:35 | DI.RAD.S_ITS ---
PROCEDURE: PAIN SI JOINT INJECTION CRYSTAL INDICATIONS: JOINT DYSFUNCTION COMPARISON: [facility], XA, PAIN SI JOINT INJECTION CRYSTAL, 08/27/2022, 12:21. FINDINGS: On these intraprocedural images, there are spinal needles seen overlying the inferior aspects of both sacroiliac joints. Appropriate position of the tips of the needle was confirmed by injection of a small amount of iodinated contrast. IMPRESSION: Successful bilateral sacroiliac joint injection. Dictated by: Brian Henley M.D. on 02/20/2023 at 11:01 Approved by: Brian Henley M.D. on 02/20/2023 at 11:01
[2023-02-20] MEDS: MIDAZOLAM 2 MG/2 ML VIAL IV (08:28)
[2023-02-20] MEDS: BETAMETHASONE 30 MG/5 ML MDV 12 MG INJ (08:35)
[2023-02-20] MEDS: IOPAMIDOL 15 ML VIAL 3 ML INJ (08:35)
[2023-02-20] MEDS: BUPIVACAINE 0.5% (PF) 10 ML VIAL 5 ML INJ (08:35)
--- NOTE | 2023-02-20 08:47 | PM.PROC.IR.1 ---
Date/Time/Diagnoses Date of procedure: 02/20/23 Time of procedure: 08:47 Pre-procedure diagnosis: Sacroiliac joint pain/DJD Post-procedure diagnosis: same Procedure Notes Procedure: Fluoroscopic guided contrast controlled bilateral sacroiliac joint injection Indications: Andry is referred by Dr. Salvador for treatment of bilateral sacroiliac joint DJD Physician: Clint Ferro Total Fluoroscopy time (seconds): 13 Total sedation minutes: 13 Complications: none Procedure in detail & Post-procedure care: Description of procedure Fluoroscopic guided, contrast controlled bilateral sacroiliac joint injection Following review of allergies and review of potential side effects and complications, including, but not necessarily limited to, infection, allergic reaction, local tissue breakdown, temporary as well as permanent nerve injury, paralysis, stroke and possible , the patient indicated that they understood and agreed to proceed. An informed consent was signed by the patient, witnessed by a nurse, and placed in the patient's chart. Additionally, other treatment options including modalities, medications, and physical therapy were reviewed with the patient. After review of previous anaesthesic history and IV conscious sedation the patient was deemed safe to proceed with today?s procedure with IV conscious sedation as ASA class II designation. Safety time-out was performed to confirm patient ID, procedure to be performed and site of procedure. IV sedation was accomplished with a combination of 2mg Versed were administered by the RN after DO order, titrated to patient comfort during the course of the procedure while the patient remained responsive to all verbal commands In the prone position following sterile prep and drape of the pelvic region, the hyper lucency on in the inferior aspect of the sacroiliac joint was identified fluoroscopically the skin was anesthetized be a 25 gauge 1.5 inch needle with approximately 2cc of 1% lidocaine solution. At this point, a 22 gauge 3 in spinal needle was atraumatically introduced and advanced under fluoroscopic guidance into the inferior aspect of the right sacroiliac joint. Following negative aspiration, approximately 0.3cc of Isovue-300 was injected confirming intra-articular placement without vascular uptake. Radiographic data, including multiple fluoroscopic views of the pelvis, reveals a spinal needle in the sacroiliac joint hyper lucent zone. Subsequent view show flow contrast tear superiorly and inferiorly within the joint capsule without vascular intrathecal uptake. At this point a total of 1cc of 0.5% Marcaine was combined with 1cc of 6mg of betamethasone was injected without incident. Attention was then refocused the left sacroiliac joint where the procedure was replicated. The procedure tolerated the procedure well without signs or symptoms of complications prior to transfer to the recovery area continued monitoring without incident. The patient was then transferred to the recovery area with a bur observed for an appropriate time after the injection. The patient reverted a vas score of 7 prior to the procedure and post-procedure vas of 1. Postop instructions The patient was provided with a pain like to continue to record the patient's response to the target specific procedure prior to the patient's follow-up visit with the referring physician. Additionally, specific post injection care instructions and a contact number to our office were provided if concerns arise regarding the possible complications associated with procedure are suspected.
== END 2023-02-20 09:02 | disposition home or self-care (01) ==
PROVIDERS: PCP Internal Medicine; Referring Provider Physical Medicine & Rehabilitation; Visit Provider Physical Medicine & Rehabilitation
DX: M53.3 Sacrococcygeal disorders, not elsewhere classified (principal); M46.1 Sacroiliitis, not elsewhere classified
CPT/HCPCS: 27096; 99152; J0702; J2250

== ENCOUNTER → 2023-06-09 11:32 | Outpatient (CLI) | payer MEDICARE, OTHER, SELFPAY ==
--- NOTE | 2023-06-09 11:34 | DI.RAD.S_ITS ---
PROCEDURE: XR SHOULDER RT MIN 2V INDICATIONS: Right shoulder impingement TECHNIQUE: 3 views of the shoulder were acquired. COMPARISON: None. FINDINGS: Bones: No fractures or dislocations. Degenerative changes of the shoulder with subchondral sclerosis. Joint space narrowing of the inferior glenohumeral joint. The acromioclavicular joint has degenerative changes. Well corticated osseous densities are seen in and around the glenohumeral joint. No suspicious bony lesions. Visualized ribs appear intact. Soft tissues: No suspicious soft tissue calcifications. IMPRESSION: 1. Degenerative changes of the glenohumeral joint with joint space narrowing and acromioclavicular joint. 2. No acute abnormality. Dictated by: Tyler George M.D. on 06/09/2023 at 15:42 Approved by: Tyler George M.D. on 06/09/2023 at 15:44
== END ==
PROVIDERS: PCP Internal Medicine; Referring Provider Physical Medicine & Rehabilitation; Visit Provider Physical Medicine & Rehabilitation
DX: M75.41 Impingement syndrome of right shoulder (principal); M47.816 Spondylosis without myelopathy or radiculopathy, lumbar region; M41.86 Other forms of scoliosis, lumbar region; M53.3 Sacrococcygeal disorders, not elsewhere classified; F06.31 Mood disorder due to known physiological condition with depressive features; Z98.1 Arthrodesis status
CPT/HCPCS: 73030; 99214

== ENCOUNTER 2023-06-17 14:03 | Outpatient (CLI) | payer MEDICARE, OTHER, SELFPAY ==
[2023-06-17] VITALS (8 sets, daily range): BP systolic 120–141; BP diastolic 57–70; PULSE 52–59; RESP 15–23; TEMP 37.1; O2SAT 97–100
--- NOTE | 2023-06-17 14:05 | DI.RAD.S_ITS ---
PROCEDURE: PAIN SI JOINT INJECTION CRYSTAL INDICATIONS: SACROILIAC DISORDER COMPARISON: [facility], , PAIN SI JOINT INJECTION CRYSTAL, 02/20/2023, 8:33. FINDINGS: On these intraprocedural images, there is a spinal needle seen overlying the inferior aspect of the right sacroiliac joint. Appropriate position of the tip of the needle was confirmed by injection of a small amount of iodinated contrast. IMPRESSION: Successful sacroiliac joint injection. Dictated by: Brian Henley M.D. on 06/17/2023 at 18:21 Approved by: Brian Henley M.D. on 06/17/2023 at 18:21
[2023-06-17] MEDS: MIDAZOLAM 2 MG/2 ML VIAL IV (14:44)
[2023-06-17] MEDS: iopamidoL 15 ML VIAL 3 ML INJ (14:47)
[2023-06-17] MEDS: BUPIVACAINE 0.5% (PF) 10 ML VIAL 2 ML INJ (14:47)
[2023-06-17] MEDS: BETAMETHASONE 30 MG/5 ML MDV 12 MG INJ (14:47)
--- NOTE | 2023-06-17 14:59 | PM.PROC.IR.1 ---
Date/Time/Diagnoses Date of procedure: 06/17/23 Time of procedure: 14:59 Pre-procedure diagnosis: Sacroiliac joint pain/DJD Post-procedure diagnosis: same Procedure Notes Procedure: Fluoroscopic guided contrast controlled bilateral sacroiliac joint injection Indications: Andry is referred by Dr. Salvador for treatment of bilateral sacroiliac joint DJD Physician: Clint Ferro Total Fluoroscopy time (seconds): 17 Total sedation minutes: 12 Complications: none Procedure in detail & Post-procedure care: Description of procedure Fluoroscopic guided, contrast controlled bilateral sacroiliac joint injection Following review of allergies and review of potential side effects and complications, including, but not necessarily limited to, infection, allergic reaction, local tissue breakdown, temporary as well as permanent nerve injury, paralysis, stroke and possible , the patient indicated that they understood and agreed to proceed. An informed consent was signed by the patient, witnessed by a nurse, and placed in the patient's chart. Additionally, other treatment options including modalities, medications, and physical therapy were reviewed with the patient. After review of previous anaesthesic history and IV conscious sedation the patient was deemed safe to proceed with today?s procedure with IV conscious sedation as ASA class II designation. Safety time-out was performed to confirm patient ID, procedure to be performed and site of procedure. IV sedation was accomplished with a combination of 2mg Versed were administered by the RN after DO order, titrated to patient comfort during the course of the procedure while the patient remained responsive to all verbal commands In the prone position following sterile prep and drape of the pelvic region, the hyper lucency on in the inferior aspect of the sacroiliac joint was identified fluoroscopically the skin was anesthetized be a 25 gauge 1.5 inch needle with approximately 2cc of 1% lidocaine solution. At this point, a 22 gauge 3 in spinal needle was atraumatically introduced and advanced under fluoroscopic guidance into the inferior aspect of the right sacroiliac joint. Following negative aspiration, approximately 0.3cc of Isovue-300 was injected confirming intra-articular placement without vascular uptake. Radiographic data, including multiple fluoroscopic views of the pelvis, reveals a spinal needle in the sacroiliac joint hyper lucent zone. Subsequent view show flow contrast tear superiorly and inferiorly within the joint capsule without vascular intrathecal uptake. At this point a total of 1cc of 0.5% Marcaine was combined with 1cc of 6mg of betamethasone was injected without incident. Attention was then refocused the left sacroiliac joint where the procedure was replicated. The procedure tolerated the procedure well without signs or symptoms of complications prior to transfer to the recovery area continued monitoring without incident. The patient was then transferred to the recovery area with a bur observed for an appropriate time after the injection. The patient reverted a vas score of 7 prior to the procedure and post-procedure vas of 1. Postop instructions The patient was provided with a pain like to continue to record the patient's response to the target specific procedure prior to the patient's follow-up visit with the referring physician. Additionally, specific post injection care instructions and a contact number to our office were provided if concerns arise regarding the possible complications associated with procedure are suspected.
== END 2023-06-17 15:15 | disposition home or self-care (01) ==
LOC: RAD 14:04
PROVIDERS: PCP Internal Medicine; Referring Provider Physical Medicine & Rehabilitation; Visit Provider Physical Medicine & Rehabilitation
DX: M53.3 Sacrococcygeal disorders, not elsewhere classified (principal); Z98.1 Arthrodesis status; M41.86 Other forms of scoliosis, lumbar region
CPT/HCPCS: 27096; 77002; 99152; J0702; J2250

== ENCOUNTER 2024-01-27 12:31 | Outpatient (CLI) | payer MEDICARE, OTHER, SELFPAY ==
[2024-01-27] VITALS (8 sets, daily range): BP systolic 111–146; BP diastolic 56–69; PULSE 45–53; RESP 9–18; TEMP 36.7; O2SAT 97–100
--- NOTE | 2024-01-27 13:00 | DI.RAD.S_ITS ---
PROCEDURE: PAIN SI JOINT INJECTION CRYSTAL INDICATIONS: Bilateral SI JOINT INJECTION COMPARISON: [facility], XA, PAIN SI JOINT INJECTION CRYSTAL, 06/17/2023, 14:46. FINDINGS: Fluoroscopic spot filming was performed to verify placement of spinal needles at the right SI joint level(s), as labeled on the films. Appropriate location(s) of the needle tip(s) was confirmed by injection of iodinated contrast. IMPRESSION: Fluoroscopic image demonstrates right SI joint injection. Please see procedure report for details. Dictated by: Beba Mckeon M.D. on 01/27/2024 at 17:37 Approved by: Beba Mckeon M.D. on 01/27/2024 at 17:38
[2024-01-27] MEDS: MIDAZOLAM 2 MG/2 ML VIAL 1 MG IV (13:30)
[2024-01-27] MEDS: iopamidoL 15 ML VIAL 3 ML INJ (13:35)
[2024-01-27] MEDS: BETAMETHASONE 30 MG/5 ML MDV 12 MG IM (13:36)
[2024-01-27] MEDS: LIDOCAINE 1% 20 ML INJ (13:37)
[2024-01-27] MEDS: BUPIVACAINE 0.5% (PF) 10 ML VIAL 5 ML INJ (13:38)
--- NOTE | 2024-01-27 13:48 | PM.PROC.IR.1 ---
Date/Time/Diagnoses Date of procedure: 01/27/24 Time of procedure: 13:48 Pre-procedure diagnosis: Sacroiliac joint pain/DJD Post-procedure diagnosis: same Procedure Notes Procedure: Fluoroscopic guided contrast controlled bilateral sacroiliac joint injection Indications: Andry is referred by Dr. Salvador for treatment of bilateral sacroiliac joint DJD Physician: Clint Ferro Total Fluoroscopy time (seconds): 13 Total sedation minutes: 11 Complications: none Procedure in detail & Post-procedure care: Description of procedure Fluoroscopic guided, contrast controlled bilateral sacroiliac joint injection Following review of allergies and review of potential side effects and complications, including, but not necessarily limited to, infection, allergic reaction, local tissue breakdown, temporary as well as permanent nerve injury, paralysis, stroke and possible , the patient indicated that they understood and agreed to proceed. An informed consent was signed by the patient, witnessed by a nurse, and placed in the patient's chart. Additionally, other treatment options including modalities, medications, and physical therapy were reviewed with the patient. After review of previous anaesthesic history and IV conscious sedation the patient was deemed safe to proceed with today?s procedure with IV conscious sedation as ASA class II designation. Safety time-out was performed to confirm patient ID, procedure to be performed and site of procedure. IV sedation was accomplished with a combination of 1mg Versed were administered by the RN after DO order, titrated to patient comfort during the course of the procedure while the patient remained responsive to all verbal commands In the prone position following sterile prep and drape of the pelvic region, the hyper lucency on in the inferior aspect of the sacroiliac joint was identified fluoroscopically the skin was anesthetized be a 25 gauge 1.5 inch needle with approximately 2cc of 1% lidocaine solution. At this point, a 22 gauge 3 in spinal needle was atraumatically introduced and advanced under fluoroscopic guidance into the inferior aspect of the right sacroiliac joint. Following negative aspiration, approximately 0.3cc of Isovue-300 was injected confirming intra-articular placement without vascular uptake. Radiographic data, including multiple fluoroscopic views of the pelvis, reveals a spinal needle in the sacroiliac joint hyper lucent zone. Subsequent view show flow contrast tear superiorly and inferiorly within the joint capsule without vascular intrathecal uptake. At this point a total of 1cc of 0.5% Marcaine was combined with 1cc of 6mg of betamethasone was injected without incident. Attention was then refocused the left sacroiliac joint where the procedure was replicated. The procedure tolerated the procedure well without signs or symptoms of complications prior to transfer to the recovery area continued monitoring without incident. The patient was then transferred to the recovery area with a bur observed for an appropriate time after the injection. The patient reverted a vas score of 7 prior to the procedure and post-procedure vas of 1. Postop instructions The patient was provided with a pain like to continue to record the patient's response to the target specific procedure prior to the patient's follow-up visit with the referring physician. Additionally, specific post injection care instructions and a contact number to our office were provided if concerns arise regarding the possible complications associated with procedure are suspected.
== END 2024-01-27 14:05 | disposition home or self-care (01) ==
PROVIDERS: PCP Internal Medicine; Referring Provider Physical Medicine & Rehabilitation; Visit Provider Physical Medicine & Rehabilitation
DX: M53.3 Sacrococcygeal disorders, not elsewhere classified (principal); M46.1 Sacroiliitis, not elsewhere classified
CPT/HCPCS: 27096; 99152; J0702; J2250

== ENCOUNTER → 2024-04-07 13:11 | Outpatient (CLI) | payer MEDICARE, OTHER, SELFPAY ==
--- NOTE | 2024-04-07 13:12 | DI.RAD.S_ITS ---
PROCEDURE: XR LUMBAR SPINE MIN 4V INDICATIONS: BACK PAIN TECHNIQUE: 5 views of the lumbar spine were acquired, including bilateral oblique views. COMPARISON: [facility], CR, XR LUMBAR SPINE 2-3V, 02/25/2022, 15:02. FINDINGS: Bones: Convex left thoracolumbar scoliosis. Mid to lower lumbar spine discectomy and fusion associated with posterior harley and screw instrumentation extending from L2 through S1. Sclerotic facet joints noted throughout the exam particularly in the lower lumbar spine. Incidental note is made of partial sacralization of the L5 vertebral body Soft tissues: Overlying bowel gas pattern is normal. No suspicious soft tissue calcifications. Atherosclerotic calcification in the abdominal aorta noted without evidence of aneurysm. Oblique images: No pars defects. 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 on 04/07/2024 at 17:22
== END ==
PROVIDERS: PCP Internal Medicine; Referring Provider Physical Medicine & Rehabilitation; Visit Provider Physical Medicine & Rehabilitation
DX: T85.625A Displacement of other nervous system device, implant or graft, initial encounter (principal); M47.816 Spondylosis without myelopathy or radiculopathy, lumbar region; M41.86 Other forms of scoliosis, lumbar region
CPT/HCPCS: 72110; 99214

== ENCOUNTER 2024-08-26 12:30 | Outpatient (CLI) | payer MEDICARE, OTHER, SELFPAY ==
[2024-08-26] VITALS (9 sets, daily range): BP systolic 113–133; BP diastolic 54–61; PULSE 51–56; RESP 16–20; TEMP 37.1; O2SAT 97–100
--- NOTE | 2024-08-26 12:33 | DI.RAD.S_ITS ---
PROCEDURE: PAIN SI JOINT INJECTION CRYSTAL INDICATIONS: Bilateral SI joint injection COMPARISON: [facility], XA, PAIN SI JOINT INJECTION CRYSTAL, 01/27/2024, 13:31. FINDINGS/IMPRESSION: Fluoroscopic spot filming was performed to verify placement of spinal needles at the bilateral SI joint level(s), as labeled on the films. Appropriate location(s) of the needle tip(s) was confirmed by injection of iodinated contrast. Dictated by: Adonis Mcclain M.D. on 08/26/2024 at 21:19 Approved by: Adonis Mcclain M.D. on 08/26/2024 at 21:21
[2024-08-26] MEDS: MIDAZOLAM 2 MG/2 ML VIAL IV (13:31)
[2024-08-26] MEDS: iopamidoL 15 ML VIAL 3 ML INJ (13:38)
[2024-08-26] MEDS: BETAMETHASONE 30 MG/5 ML MDV 12 MG INJ ×2 (13:38→13:40)
[2024-08-26] MEDS: BUPIVACAINE 0.5% (PF) 10 ML VIAL 2 ML INJ (13:39)
--- NOTE | 2024-08-26 13:57 | PM.PROC.IR.1 ---
Date/Time/Diagnoses Date of procedure: 08/26/24 Time of procedure: 13:57 Pre-procedure diagnosis: Sacroiliac joint pain/DJD Post-procedure diagnosis: same Procedure Notes Procedure: Fluoroscopic guided contrast controlled bilateral sacroiliac joint injection Indications: Andry is referred by Dr. Salvador for treatment of bilateral sacroiliac joint DJD Physician: Clint Ferro Total Fluoroscopy time (seconds): 19 Total sedation minutes: 19 Complications: none Procedure in detail & Post-procedure care: Description of procedure Fluoroscopic guided, contrast controlled bilateral sacroiliac joint injection Following review of allergies and review of potential side effects and complications, including, but not necessarily limited to, infection, allergic reaction, local tissue breakdown, temporary as well as permanent nerve injury, paralysis, stroke and possible , the patient indicated that they understood and agreed to proceed. An informed consent was signed by the patient, witnessed by a nurse, and placed in the patient's chart. Additionally, other treatment options including modalities, medications, and physical therapy were reviewed with the patient. After review of previous anaesthesic history and IV conscious sedation the patient was deemed safe to proceed with today?s procedure with IV conscious sedation as ASA class II designation. Safety time-out was performed to confirm patient ID, procedure to be performed and site of procedure. IV sedation was accomplished with a combination of 2mg Versed were administered by the RN after DO order, titrated to patient comfort during the course of the procedure while the patient remained responsive to all verbal commands In the prone position following sterile prep and drape of the pelvic region, the hyper lucency on in the inferior aspect of the sacroiliac joint was identified fluoroscopically the skin was anesthetized be a 25 gauge 1.5 inch needle with approximately 2cc of 1% lidocaine solution. At this point, a 22 gauge 3 in spinal needle was atraumatically introduced and advanced under fluoroscopic guidance into the inferior aspect of the right sacroiliac joint. Following negative aspiration, approximately 0.3cc of Isovue-300 was injected confirming intra-articular placement without vascular uptake. Radiographic data, including multiple fluoroscopic views of the pelvis, reveals a spinal needle in the sacroiliac joint hyper lucent zone. Subsequent view show flow contrast tear superiorly and inferiorly within the joint capsule without vascular intrathecal uptake. At this point a total of 1cc of 0.5% Marcaine was combined with 1cc of 6mg of betamethasone was injected without incident. Attention was then refocused the left sacroiliac joint where the procedure was replicated. The procedure tolerated the procedure well without signs or symptoms of complications prior to transfer to the recovery area continued monitoring without incident. The patient was then transferred to the recovery area with a bur observed for an appropriate time after the injection. The patient reverted a vas score of 7 prior to the procedure and post-procedure vas of 1. Postop instructions The patient was provided with a pain like to continue to record the patient's response to the target specific procedure prior to the patient's follow-up visit with the referring physician. Additionally, specific post injection care instructions and a contact number to our office were provided if concerns arise regarding the possible complications associated with procedure are suspected.
== END 2024-08-26 14:20 | disposition home or self-care (01) ==
PROVIDERS: PCP Internal Medicine; Referring Provider Physical Medicine & Rehabilitation; Visit Provider Physical Medicine & Rehabilitation
DX: M53.3 Sacrococcygeal disorders, not elsewhere classified (principal); M46.1 Sacroiliitis, not elsewhere classified
CPT/HCPCS: 27096; 77002; 99152; J0702; J2250

== ENCOUNTER 2025-02-03 10:56 | Outpatient (CLI) | payer MEDICARE, OTHER, SELFPAY ==
[2025-02-03] VITALS (8 sets, daily range): BP systolic 111–148; BP diastolic 58–79; PULSE 54–67; RESP 16–18; TEMP 36.6; O2SAT 96–100
[2025-02-03] MEDS: MIDAZOLAM 2 MG/2 ML VIAL IV (12:10)
[2025-02-03] MEDS: iopamidoL 15 ML VIAL 3 ML INJ (12:18)
[2025-02-03] MEDS: BETAMETHASONE 30 MG/5 ML MDV 12 MG INJ (12:19)
[2025-02-03] MEDS: BUPIVACAINE 0.5% (PF) 10 ML VIAL 2 ML INJ (12:19)
[2025-02-03] MEDS: BETAMETHASONE 30 MG/5 ML MDV 6 MG INJ (12:20)
--- NOTE | 2025-02-03 13:29 | PM.PROC.IR.1 ---
Date/Time/Diagnoses Date of procedure: 02/03/25 Time of procedure: 13:29 Pre-procedure diagnosis: Sacroiliac joint pain/DJD Post-procedure diagnosis: same Procedure Notes Procedure: Fluoroscopic guided contrast controlled bilateral sacroiliac joint injection Indications: Andry is referred by Dr. Salvador for treatment of bilateral sacroiliac joint DJD Physician: Clint Ferro Total Fluoroscopy time (seconds): 19 Total sedation minutes: 21 Complications: none Procedure in detail & Post-procedure care: Description of procedure Fluoroscopic guided, contrast controlled bilateral sacroiliac joint injection Following review of allergies and review of potential side effects and complications, including, but not necessarily limited to, infection, allergic reaction, local tissue breakdown, temporary as well as permanent nerve injury, paralysis, stroke and possible , the patient indicated that they understood and agreed to proceed. An informed consent was signed by the patient, witnessed by a nurse, and placed in the patient's chart. Additionally, other treatment options including modalities, medications, and physical therapy were reviewed with the patient. After review of previous anaesthesic history and IV conscious sedation the patient was deemed safe to proceed with today?s procedure with IV conscious sedation as ASA class II designation. Safety time-out was performed to confirm patient ID, procedure to be performed and site of procedure. IV sedation was accomplished with a combination of 2mg Versed were administered by the RN after DO order, titrated to patient comfort during the course of the procedure while the patient remained responsive to all verbal commands In the prone position following sterile prep and drape of the pelvic region, the hyper lucency on in the inferior aspect of the sacroiliac joint was identified fluoroscopically the skin was anesthetized be a 25 gauge 1.5 inch needle with approximately 2cc of 1% lidocaine solution. At this point, a 22 gauge 3 in spinal needle was atraumatically introduced and advanced under fluoroscopic guidance into the inferior aspect of the right sacroiliac joint. Following negative aspiration, approximately 0.3cc of Isovue-300 was injected confirming intra-articular placement without vascular uptake. Radiographic data, including multiple fluoroscopic views of the pelvis, reveals a spinal needle in the sacroiliac joint hyper lucent zone. Subsequent view show flow contrast tear superiorly and inferiorly within the joint capsule without vascular intrathecal uptake. At this point a total of 1cc of 0.5% Marcaine was combined with 1cc of 6mg of betamethasone was injected without incident. Attention was then refocused the left sacroiliac joint where the procedure was replicated. The procedure tolerated the procedure well without signs or symptoms of complications prior to transfer to the recovery area continued monitoring without incident. The patient was then transferred to the recovery area with a bur observed for an appropriate time after the injection. The patient reverted a vas score of 7 prior to the procedure and post-procedure vas of 1. Postop instructions The patient was provided with a pain like to continue to record the patient's response to the target specific procedure prior to the patient's follow-up visit with the referring physician. Additionally, specific post injection care instructions and a contact number to our office were provided if concerns arise regarding the possible complications associated with procedure are suspected.
== END 2025-02-03 12:52 | disposition home or self-care (01) ==
PROVIDERS: PCP Internal Medicine; Referring Provider Internal Medicine; Visit Provider Physical Medicine & Rehabilitation
DX: M53.3 Sacrococcygeal disorders, not elsewhere classified (principal); M46.1 Sacroiliitis, not elsewhere classified
CPT/HCPCS: 27096; 77002; 99152; J0702; J2250

== ENCOUNTER 2025-07-12 14:28 | Outpatient (CLI) | payer MEDICARE, OTHER, SELFPAY ==
[2025-07-12] VITALS (9 sets, daily range): BP systolic 102–126; BP diastolic 56–67; PULSE 58–62; RESP 14–20; TEMP 37.2; O2SAT 97–100
[2025-07-12] MEDS: MIDAZOLAM 2 MG/2 ML VIAL IV (16:17)
[2025-07-12] MEDS: BETAMETHASONE 30 MG/5 ML MDV 12 MG INJ (16:22)
[2025-07-12] MEDS: BETAMETHASONE 30 MG/5 ML MDV 6 MG INJ (16:24)
--- NOTE | 2025-07-12 16:41 | PM.PROC.IR.1 ---
Date/Time/Diagnoses Date of procedure: 07/12/25 Time of procedure: 16:41 Pre-procedure diagnosis: Sacroiliac joint pain/DJD Post-procedure diagnosis: same Procedure Notes Procedure: Fluoroscopic guided contrast controlled bilateral sacroiliac joint injection Indications: Andry is referred by Dr. Salvador for treatment of bilateral sacroiliac joint DJD Physician: Clint Ferro Total Fluoroscopy time (seconds): 17 Total sedation minutes: 22 Complications: none Procedure in detail & Post-procedure care: Description of procedure Fluoroscopic guided, contrast controlled bilateral sacroiliac joint injection Following review of allergies and review of potential side effects and complications, including, but not necessarily limited to, infection, allergic reaction, local tissue breakdown, temporary as well as permanent nerve injury, paralysis, stroke and possible , the patient indicated that they understood and agreed to proceed. An informed consent was signed by the patient, witnessed by a nurse, and placed in the patient's chart. Additionally, other treatment options including modalities, medications, and physical therapy were reviewed with the patient. After review of previous anaesthesic history and IV conscious sedation the patient was deemed safe to proceed with today?s procedure with IV conscious sedation as ASA class II designation. Safety time-out was performed to confirm patient ID, procedure to be performed and site of procedure. IV sedation was accomplished with a combination of 2mg Versed were administered by the RN after DO order, titrated to patient comfort during the course of the procedure while the patient remained responsive to all verbal commands In the prone position following sterile prep and drape of the pelvic region, the hyper lucency on in the inferior aspect of the sacroiliac joint was identified fluoroscopically the skin was anesthetized be a 25 gauge 1.5 inch needle with approximately 2cc of 1% lidocaine solution. At this point, a 22 gauge 3 in spinal needle was atraumatically introduced and advanced under fluoroscopic guidance into the inferior aspect of the right sacroiliac joint. Following negative aspiration, approximately 0.3cc of Isovue-300 was injected confirming intra-articular placement without vascular uptake. Radiographic data, including multiple fluoroscopic views of the pelvis, reveals a spinal needle in the sacroiliac joint hyper lucent zone. Subsequent view show flow contrast tear superiorly and inferiorly within the joint capsule without vascular intrathecal uptake. At this point a total of 1cc of 0.5% Marcaine was combined with 1cc of 6mg of betamethasone was injected without incident. Attention was then refocused the left sacroiliac joint where the procedure was replicated. The procedure tolerated the procedure well without signs or symptoms of complications prior to transfer to the recovery area continued monitoring without incident. The patient was then transferred to the recovery area with a bur observed for an appropriate time after the injection. The patient reverted a vas score of 7 prior to the procedure and post-procedure vas of 1. Postop instructions The patient was provided with a pain like to continue to record the patient's response to the target specific procedure prior to the patient's follow-up visit with the referring physician. Additionally, specific post injection care instructions and a contact number to our office were provided if concerns arise regarding the possible complications associated with procedure are suspected.
== END 2025-07-12 16:55 | disposition home or self-care (01) ==
LOC: RAD 14:29
PROVIDERS: PCP Internal Medicine; Referring Provider Physical Medicine & Rehabilitation; Visit Provider Physical Medicine & Rehabilitation
DX: M46.1 Sacroiliitis, not elsewhere classified (principal); M53.3 Sacrococcygeal disorders, not elsewhere classified
CPT/HCPCS: 27096; 99152; J0702; J2250

== ENCOUNTER 2025-08-01 12:30 | Outpatient (RCR) | payer MEDICARE, OTHER, SELFPAY | END 2025-08-01 14:30 | LOC: PUL 12:30 | PROVIDERS: PCP Internal Medicine; Referring Provider Internal Medicine Critical Care Medicine; Visit Provider Internal Medicine Critical Care Medicine | DX: J44.9 Chronic obstructive pulmonary disease, unspecified (principal) | CPT/HCPCS: 94626 ==